=== PATIENT | male | born 1955 | race Caucasian/White ===

== ENCOUNTER 2022-03-30 16:55 | Observation (INO) | payer BC ==
[~2022-03-30] VITALS: Ht 183 cm; Wt 111.8 kg
[2022-03-30] MEDS ORDERED: KLOR-CON M1010 MEQ PO (18:26)
[2022-03-30] MEDS ORDERED: NORVASC 5MG5 MG/TAB PO (18:26)
[2022-03-30] MEDS ORDERED: DIOVAN/HCT 12.51 TAB PO (18:26)
[2022-03-30] MEDS ORDERED: CRESTOR 10MG10 MG PO (18:26)
[2022-03-30 18:31] LABS: HEMATOCRIT 45.2 % (42.0-52.0); HEMOGLOBIN 14.8 g/dl (13.5-18.0); MEAN CELL VOLUME 79 fl (80.0-100.0); MEAN CORPUSCULAR HEMOGLOBIN 26 pg (27-31); MEAN CORPUSCULAR HGB CONC 33 g/dl (33.0-37.0); MEAN PLATELET VOLUME 10.5 fl (7.4-10.4); PLATELET COUNT 93 K/mm3 (130-400); RED BLOOD COUNT 5.75 M/mm3 (4.20-5.60); REDCELL DISTRIBUTION WIDTH-CV 15.8 % (11.5-14.5)
[2022-03-30 19:01] LABS: BILIRUBIN,TOTAL 1.3 mg/dL (0.2-1.2); C-REACTIVE PROTEIN 0.03 mg/dL (0.00-0.50); CALCIUM 9.1 mg/dL (8.4-10.2); CREATININE, serum 1.54 mg/dL (0.72-1.25); POTASSIUM 3.2 mmol/L (3.5-4.5); TOTAL PROTEIN 7.2 gm/dL (6.2-8.1)
[2022-03-30 19:06] LABS: BAND 3 % (0-10); EOSINOPHIL 1 % (0-4); LYMPHOCYTE 52 % (20.0-51.0); NEUTROPHILS 41 % (42.0-75.2)
[2022-03-30 19:07] LABS: ANISOCYTOSIS 1+; BURR CELLS 1+; OVALOCYTES 1+; PLATELET ESTIMATE DECREASED (NORMAL)
[2022-03-30 19:09] LABS: TROPONIN-I 0.059 ng/mL (0.00-0.033)
[2022-03-31] VITALS (14 sets, daily range): BP systolic 123–155; BP diastolic 66–87; PULSE 49–72; TEMP 8.3
[2022-03-31 06:17] LABS: CALCIUM 8.1 mg/dL (8.4-10.2); CREATININE, serum 1.03 mg/dL (0.72-1.25); POTASSIUM 3.4 mmol/L (3.5-4.5)
[2022-03-31 06:26] LABS: HEMATOCRIT 40.5 % (42.0-52.0); MEAN CELL VOLUME 80 fl (80.0-100.0); MEAN CORPUSCULAR HEMOGLOBIN 25 pg (27-31); MEAN CORPUSCULAR HGB CONC 32 g/dl (33.0-37.0); MEAN PLATELET VOLUME 10.7 fl (7.4-10.4); PLATELET COUNT 72 K/mm3 (130-400); RED BLOOD COUNT 5.06 M/mm3 (4.20-5.60); REDCELL DISTRIBUTION WIDTH-CV 15.7 % (11.5-14.5)
[2022-03-31 06:28] LABS: HEMOGLOBIN 12.8 g/dl (13.5-18.0)
[2022-03-31 06:56] LABS: BAND 3 % (0-10); NEUTROPHILS 21 % (42.0-75.2); PLATELET ESTIMATE DECREASED (NORMAL)
[2022-03-31 06:57] LABS: ANISOCYTOSIS 1+; HYPOCHROMIA 1+; OVALOCYTES 1+
[2022-03-31 06:58] LABS: LYMPHOCYTE 62 % (20.0-51.0); MICROCYTOSIS 1+
--- NOTE | 2022-03-31 09:00 | NUR ---
arrived on unit from ED per WC and assisted into bed, full assessment completed, see interventions for further info, denies pain just states he is tired and doesn't feel good although he feels better than when he came to hospital
[2022-03-31] MEDS ORDERED: CVS SPECTRAVIT1 EA15 PO (09:13)
[2022-03-31] MEDS ORDERED: TYLENOL 325MG325 MG PO (09:14)
--- NOTE | 2022-03-31 10:30 | NUR ---
resting in bed, at bedside
--- NOTE | 2022-03-31 11:25 | NUR ---
Dr Becker was in and saw patient and will plan lexiscan at this time, IV fluids stopped and to radiology for procedure,
[2022-03-31 11:58] LABS: CLOSTRIDIUM DIFF A/B NEG; CLOSTRIDIUM DIFF A/B INTERP No C.diff present
--- NOTE | 2022-03-31 12:45 | NUR ---
Zuleika: [facility] Situation: equipment service technician stopped by room on rounds Background: Pt was resting and content Assessment: Pt has no needs right now. Pt appreciated the visit Recommendation: equipment service technician will follow up as needed
--- NOTE | 2022-03-31 13:31 | NUR ---
returned per WC to room from [facility], IV fluids restarted
--- NOTE | 2022-03-31 13:45 | NUR ---
up to bathroom after returning from [facility] and had bowel movement that he reported as loose,
--- NOTE | 2022-03-31 15:36 | NUR ---
bedside report given to TOBIN Villanueva Dr was in and will plan to do heart cath
--- NOTE | 2022-03-31 15:41 | NUR ---
[employer] met with patient to discuss discharge planning. Patient lives in [place] with his , Ankita (ph#[phone]) who is at bedside. Patient sees Dr. Mazariegos for primary care and obtains medications from [facility] with no difficulties. Patient does not use any DME and is independent with [facility]LS. Patient does not have Advance Directives. Patient plans to return home at time of discharge. Discharge Plan: Home
--- NOTE | 2022-03-31 16:10 | NUR ---
SEE MERGE FOR VITAL SIGNS, ASSESSMENTS, INTERVENTIONS AND MEDICATIONS GIVEN.
--- NOTE | 2022-03-31 17:00 | NUR ---
PATIENT ARRIVED FROM STUDENT SUPPORT SERVICES DIRECTOR. VITALS STABLE. TR BAND SITE WITHOUT BLEEDING. PATIENT VOICES NO COMPLAINTS, NEEDS OR CONCERNS AT THIS TIME.
[2022-04-01 04:01] VITALS: BP 138/71; PULSE 45; TEMP 97.5
[2022-04-01 08:01] VITALS: BP 142/76; PULSE 44; TEMP 98.3
[2022-04-01 08:44] LABS: COLLECTION METHOD CLEAN CATCH
[2022-04-01 08:59] LABS: MUCOUS Present (NOT PRESENT); SQUAMOUS EPITHELIAL 0-2 /hpf (0-10); URINE BACTERIA None Seen /hpf (NONE SEEN)
[2022-04-01] MEDS ORDERED: CRESTOR20 MG PO (08:59)
[2022-04-01] MEDS ORDERED: ASPIRIN 81M81 MG/TA2 PO (09:00)
[2022-04-01 09:02] LABS: PH 5.5 (5.0-8.5); URINE APPEARANCE Clear (CLEAR/HAZY); URINE COLOR Yellow (YELLOW); URINE GLUCOSE Negative (NEGATIVE); URINE KETONE 2+ (NEGATIVE); URINE NITRATE Negative (NEGATIVE); URINE PROTEIN(semi-quant) 1+ (NEGATIVE); URINE UROBILINOGEN 0.2 E.U/dL (0.2-1.0)
[2022-04-01 09:03] LABS: URINE BLOOD TRACE-INTACT (NEGATIVE)
[2022-04-01 09:09] LABS: HEMATOCRIT 38.4 % (42.0-52.0); HEMOGLOBIN 12.5 g/dl (13.5-18.0); MEAN CELL VOLUME 79 fl (80.0-100.0); MEAN CORPUSCULAR HEMOGLOBIN 26 pg (27-31); MEAN CORPUSCULAR HGB CONC 33 g/dl (33.0-37.0); MEAN PLATELET VOLUME 11.3 fl (7.4-10.4); PLATELET COUNT 76 K/mm3 (130-400); RED BLOOD COUNT 4.87 M/mm3 (4.20-5.60); REDCELL DISTRIBUTION WIDTH-CV 15.9 % (11.5-14.5)
[2022-04-01 09:25] LABS: CALCIUM 7.8 mg/dL (8.4-10.2); CREATININE, serum 0.85 mg/dL (0.72-1.25); MAGNESIUM 2.1 mg/dL (1.6-2.6); POTASSIUM 3.5 mmol/L (3.5-4.5)
--- NOTE | 2022-04-01 09:45 | NUR ---
PATIENT GIVEN ALL DISCHARGE INSTRUCTIONS AND EDUCATION.IV DISCONTINUED, TELE REMOVED. PATIENT WITH NO COMPLAINTS. PATIENT LEFT IN THE CARE OF HIS . PATIENT LEFT IN STABLE CONDITON.
[2022-04-01 09:47] LABS: BAND 2 % (0-10); LYMPHOCYTE 55 % (20.0-51.0); NEUTROPHILS 35 % (42.0-75.2); PLATELET ESTIMATE DECREASED (NORMAL)
[2022-04-01 09:48] LABS: ANISOCYTOSIS 1+; HYPOCHROMIA 1+; OVALOCYTES 2+
[2022-04-01 09:49] LABS: BURR CELLS 1+
--- NOTE | 2022-04-01 13:41 | NUR ---
Primary nurse was assisted with [phone] patient caree by [employer] student Danitza Alvares and [employer] instructor Loretta VALDEZ-MIN, RN
== END 2022-04-01 09:45 | disposition home or self-care (01) ==
LOC: COL.ER 16:55 → MEDICAL 21:41
PROVIDERS: Nurse Practitioner Primary Care; Physician Assistant; Student in an Organized Health Care Education/Training Program; ADMIT Internal Medicine
DX: R19.7 Diarrhea, unspecified (principal); R77.8 Other specified abnormalities of plasma proteins; R79.89 Other specified abnormal findings of blood chemistry; R53.1 Weakness; K57.90 Diverticulosis of intestine, part unspecified, without perforation or abscess without bleeding; Z20.822 Contact with and (suspected) exposure to COVID-19
CPT/HCPCS: A9500; C1769; G0378; J1644; J2250; J2405; J2785; J3010; J3480; J7030; Q9967

== ENCOUNTER → 2022-05-21 | Outpatient (CLI) | payer BC ==
[~2022-05-21] MED LIST: ASPIRIN 81M81 MG/TA2 PO; CRESTOR 10MG10 MG PO; CRESTOR20 MG PO; CVS SPECTRAVIT1 EA15 PO; DIOVAN/HCT 12.51 TAB PO; KLOR-CON M1010 MEQ PO; NORVASC 5MG5 MG/TAB PO; TYLENOL 325MG325 MG PO
== END ==
LOC: COL.RAD 09:09
DX: K86.2 Cyst of pancreas (principal)
CPT/HCPCS: A9575